=== PATIENT | female | born 1950 | race Caucasian/White ===

== ENCOUNTER 2024-12-20 13:08 | Outpatient (CLI) | payer MEDICARE, SELFPAY ==
--- OUTSIDE RECORDS SUMMARY | 2024-12-20 13:14 | XMS_ITS | Clinical Summary ---
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 Name Role Phone Michael Samuel MD Primary Care Provider Family History Medical History Relation Name Comments Breast cancer Father's Sister Relation Name Status Comments Father's Sister Social History Tobacco Use Types Packs/Day Years Used Date Smoking Tobacco: Never Comments Unknown Sex and Gender Information Value Date Recorded Sex Assigned at Not on file Legal Sex Female 6:56 PM EDT Gender Identity Not on file Sexual Orientation Not on file Last Filed Vital Signs Vital Sign Reading Time Taken Comments Blood Pressure - - Pulse - - Temperature - - Respiratory Rate - - Oxygen Saturation - - Inhaled Oxygen Concentration - - Weight 82.1 kg (181 lb) 09/29/2014 11:29 AM EDT Height 167.6 cm (5' 6 ) 09/29/2014 11:29 AM EDT Body Mass Index 29.21 09/29/2014 11:29 AM EDT Plan of Treatment Not on file Care Teams Dowel Sander Operator Relationship Specialty Start Date End Date Michael Samuel MD [address] [place] [address] PCP - General 10/26/20
[2024-12-20 14:35] LABS: Alanine Aminotransferase 62 U/L (12-78); Albumin Level 5.0 g/dl (3.5-5.0); Albumin/Globulin Ratio 1.4 (1.1-1.8); Alkaline Phosphatase 102 U/L (38-126); Anion Gap 20.1 mEq/L (5-15); Aspartate Amino Transferase 77 U/L (14-36); Bilirubin,Total 0.4 mg/dl (0.2-1.3); Blood Urea Nitrogen 20 mg/dl (7-17); Calcium 10.5 mg/dl (8.4-10.2); Carbon Dioxide 26 mmol/L (22.0-30.0); Chloride 90 mmol/L (98-107); Creatinine,Serum 0.90 mg/dl (0.52-1.04); Estimated Glomerular Filt Rate 61 ml/min (>60); GFR (African American) 74 ML/MIN (>60); Globulin 3.6 g/dL (1.3-3.2); Glucose 91 mg/dl (74-100); Potassium 5.1 mmoL/L (3.5-5.1); Sodium 131 mmol/L (136-145); Total Protein,Serum 8.6 g/dl (6.3-8.2)
[2024-12-24 03:47] LABS: ALT (SGPT) P5P 64 IU/L (0-40); AST (SGOT) P5P 76 IU/L (0-40); Alpha 2-Macroglobulins, Qn 419 mg/dL (110-276); Bilirubin, Total 0.2 mg/dL (0.0-1.2); Cholesterol, Total 183 mg/dL (100-199); GGT 370 IU/L (0-60); Glucose 88 mg/dL (70-99); Triglycerides 165 mg/dL (0-149)
== END 2024-12-20 23:59 | disposition home or self-care (01) ==
LOC: LAB 13:10
PROVIDERS: Visit Provider Internal Medicine Gastroenterology
DX: K76.0 Fatty (change of) liver, not elsewhere classified (principal)
CPT/HCPCS: 36415; 80053; 81596; 82247; 82465; 82947; 82977; 83521; 84450; 84460; 84478